=== PATIENT | male | born 2000 | race Caucasian/White ===

== ENCOUNTER 2019-08-08 11:27 | Emergency (ER) | payer MEDICAID, OTHER ==
[~2019-08-08] VITALS: Ht 180.3 cm; Wt 73.6 kg
[2019-08-08 11:34] VITALS: BP 122/77
[2019-08-08] MEDS ORDERED: AZITHROMYCIN 500 MG TABLET ONE (11:45)
[2019-08-08] MEDS ORDERED: CEFTRIAXONE 250 MG ONE (11:46)
[2019-08-08] MEDS ORDERED: AZITHROMYCIN 500 MG TABLET PO ONE (12:00)
[2019-08-08] MEDS ORDERED: CEFTRIAXONE 250 MG IM ONE (12:00)
--- NOTE | 2019-08-08 12:06 | NUR ---
Patient/Caregiver given discharge instructions and they have confirmed that they understand the instructions. Patient ambulatory with steady gait.
== END 2019-08-08 12:17 | disposition home or self-care (01) ==
LOC: ED 12:11
DX: A56.01 Chlamydial cystitis and urethritis (principal); A54.01 Gonococcal cystitis and urethritis, unspecified; F17.200 Nicotine dependence, unspecified, uncomplicated
CPT/HCPCS: 96372; 99283; J0696